=== PATIENT | female | born 1970 ===

== ENCOUNTER 2018-11-13 17:50 | Emergency (ER) | payer MEDICAID ==
[2018-11-13 18:01] VITALS: BP 149/88; PULSE 79; RESP 18; TEMP 98.8; O2SAT 99
[2018-11-13] MEDS ORDERED: Lidocaine 5% Patch TD STA (18:12)
[2018-11-13] MEDS ORDERED: Lidocaine 5% Patch TD ONE (18:18)
--- NOTE | 2018-11-13 18:32 | C.PDOC ---
History Of Present Illness 48 y/o female presents to the ER complaining of right shoulder and upper arm pain which has been present for the past 3 weeks. Patient states that the pain is constant and she describes the pain as dull and throbbing. Patient reports that the pain waxes and wanes. She notes that she intermittent parasthesias radiating down the arm to fingers. 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 Time Seen by Provider: 11/13/18 18:05 Chief Complaint (Nursing): Upper Extremity Problem/Injury History Per: Patient History/Exam Limitations: no limitations Onset/Duration Of Symptoms: Days Current Symptoms Are (Timing): Still Present Severity: Moderate Past Medical History Vital Signs: Last Vital Signs Temp 98.8 F 11/13/18 17:58 Pulse 79 11/13/18 17:58 Resp 18 11/13/18 17:58 BP 149/88 11/13/18 17:58 Pulse Ox 99 11/13/18 17:58 - Social History Hx Alcohol Use: No Hx Substance Use: No - Immunization History Hx Tetanus Toxoid Vaccination: No Hx Influenza Vaccination: No Hx Pneumococcal Vaccination: No Review Of Systems Except As Marked, All Systems Reviewed And Found Negative. Cardiovascular: Negative for: Chest Pain Respiratory: Negative for: Shortness of Breath Musculoskeletal: Positive for: Shoulder Pain, Arm Pain. Negative for: Neck Pain Physical Exam - Physical Exam Appears: Non-toxic, No Acute Distress Skin: Normal Color, Warm, Dry, Other (no erythema and no bruising to right shoulder and arm) Head: Atraumatic, Normacephalic Eye(s): bilateral: Normal Inspection Nose: Normal Oral Mucosa: Moist Neck: Supple, Other (mild tightness to right trapezius, mild muscle spasm) Chest: Symmetrical Cardiovascular: Rhythm Regular Respiratory: Normal Breath Sounds, No Rales, No Rhonchi, No Wheezing Extremity: No Normal ROM (some decreased ROM with flexion of right shoulder joint secondary to pain), No Swelling Neurological/Psych: Oriented x3, Normal Speech ED Course And Treatment O2 Sat by Pulse Oximetry: 99 (RA) Pulse Ox Interpretation: Normal Medical Decision Making Medical Decision Making: Plan: --Motrin PO --Tylenol PO --Lidoderm Patch Disposition Counseled Patient/Family Regarding: Diagnosis, Need For Followup, Rx Given - Disposition Referrals: Jacqueline Cavazos APN [Advanced Practice Nurse] - Disposition: HOME/ ROUTINE Disposition Time: 18:31 Condition: STABLE Prescriptions: Acetaminophen [Tylenol Extra Strength] 1,000 mg PO BID #16 tablet Ibuprofen [Motrin] 600 mg PO TID #15 tab Instructions: Muscle and Bone Pain (DC) Forms: Gen Discharge Inst Polish, [facility] (Polish), Work Excuse - POA Present On Arrival: None - Clinical Impression Clinical Impression: Muscle strain - Scribe Statement The provider has reviewed the documentation as recorded by the Murrayibe Pau Costa Provider Attestation: All medical record entries made by the Scribe were at my direction and personally dictated by me. I have reviewed the chart and agree that the record accurately reflects my personal performance of the history, physical exam, medical decision making, and the department course for this patient. I have also personally directed, reviewed, and agree with the discharge instructions and disposition.
== END 2018-11-13 18:44 | disposition home or self-care (01) ==
LOC: C.ER 17:50
DX: S46.911A Strain of unspecified muscle, fascia and tendon at shoulder and upper arm level, right arm, initial encounter (principal); X50.0XXA Overexertion from strenuous movement or load, initial encounter